=== PATIENT | male | born 1980 | race Caucasian/White ===

== ENCOUNTER 2017-05-28 18:04 | Observation (INO) | payer OTHER ==
[~2017-05-28] VITALS: Ht 180.3 cm; Wt 177.4 kg
[2017-05-28 19:08] VITALS: BP 174/111
[2017-05-28 19:40] LABS: HEMATOCRIT 43.9 % (42.0-52.0); HEMOGLOBIN 15.3 gm/dL (14.0-18.0); MCH 34.5 pg (26.0-34.0); MCHC 34.9 g/dL (28.0-37.0); MCV 98.7 fL (80.0-100.0); PLATELET COUNT 134 thou/uL (150-400); RBC 4.45 mil/uL (4.50-6.00); RDW 12.6 % (10.5-14.5); WBC 7.5 thou/uL (4.0-11.0)
[2017-05-28 19:42] LABS: MANUAL DIFF YES
[2017-05-28 19:45] LABS: CREATININE 1.1 mg/dL (0.7-1.3); POTASSIUM 4.1 mmol/L (3.5-5.1)
[2017-05-28 19:50] LABS: ALBUMIN 3.3 g/dL (3.4-5.0); DIRECT BILIRUBIN 0.2 mg/dL (<0.1-0.3); TOTAL BILIRUBIN 0.6 mg/dL (<0.1-1.0); TOTAL PROTEIN 7.7 g/dL (6.4-8.2)
[2017-05-28 19:58] LABS: ABSOLUTE NEUTROPHILS 6.2 thou/uL (1.4-8.2); ANISOCYTOSIS 1+; TOTAL CELL COUNT 100
[2017-05-28 20:38] VITALS: BP 137/92
[2017-05-28 21:00] VITALS: BP 138/90
[2017-05-28 23:50] VITALS: BP 149/78
[2017-05-29 01:22] LABS: URINE BILIRUBIN NEGATIVE (Negative); URINE BLOOD NEGATIVE (Negative); URINE COLOR YELLOW; URINE GLUCOSE-RANDOM* NEGATIVE (Negative); URINE KETONES NEGATIVE (Negative); URINE LEUKOCYTES-REFLEX NEGATIVE (Negative); URINE PROTEIN (DIPSTICK) NEGATIVE (Negative); URINE SPECIFIC GRAVITY 1.015 (1.003-1.035); URINE UROBILINOGEN 0.2 E.U./dl (0.2-1.0)
[2017-05-29 03:36] VITALS: BP 145/72
[2017-05-29 06:20] LABS: HEMATOCRIT 39.5 % (42.0-52.0); HEMOGLOBIN 14.1 gm/dL (14.0-18.0); MCH 34.9 pg (26.0-34.0); MCHC 35.8 g/dL (28.0-37.0); MCV 97.5 fL (80.0-100.0); RBC 4.05 mil/uL (4.50-6.00); RDW 12.4 % (10.5-14.5); WBC 6.1 thou/uL (4.0-11.0)
[2017-05-29 06:33] LABS: ALBUMIN 2.8 g/dL (3.4-5.0); CALCIUM 8.7 mg/dL (8.5-10.1); POTASSIUM 3.9 mmol/L (3.5-5.1); TOTAL BILIRUBIN 0.5 mg/dL (<0.1-1.0); TOTAL PROTEIN 6.8 g/dL (6.4-8.2)
[2017-05-29 08:21] VITALS: BP 152/84
[2017-05-29 15:30] VITALS: BP 174/82
[2017-05-29 18:06] LABS: HEPATITIS C VIRUS AB 0.1 (0.0-0.9)
[2017-05-29 19:35] VITALS: BP 150/75
[2017-05-30 01:41] LABS: HIV ANTIBODY Non Reactive (Non Reactive)
[2017-05-30 03:06] LABS: ESTIMATED AVERAGE GLUCOSE 103 mg/dL (()); GLYCOHEMOGLOBIN (HGB A1C) 5.2 % (4.8-5.6)
[2017-05-30 04:11] VITALS: BP 132/78
[2017-05-30 07:59] VITALS: BP 150/84
[2017-05-30 09:21] LABS: HEMATOCRIT 40.1 % (42.0-52.0); HEMOGLOBIN 14.1 gm/dL (14.0-18.0); MCH 34.6 pg (26.0-34.0); MCHC 35.3 g/dL (28.0-37.0); RBC 4.08 mil/uL (4.50-6.00); RDW 12.5 % (10.5-14.5); WBC 6.5 thou/uL (4.0-11.0)
[2017-05-30 16:00] VITALS: BP 183/61
[2017-05-30 19:35] VITALS: BP 149/78
[2017-05-31 05:00] VITALS: BP 133/81
[2017-05-31 07:23] VITALS: BP 154/79
[2017-05-31] MEDS ORDERED: CLEOCIN HCL150 MG PO (10:14)
[2017-05-31 10:34] VITALS: BP 154/79
== END 2017-05-31 12:37 | disposition home or self-care (01) ==
LOC: ER 18:04 → EROBS 20:23 → 4S 20:23
PROVIDERS: Internal Medicine; Nurse Practitioner; Nurse Practitioner Acute Care
DX: L03.115 Cellulitis of right lower limb (principal); E66.9 Obesity, unspecified; Z72.0 Tobacco use; R74.0 Nonspecific elevation of levels of transaminase and lactic acid dehydrogenase [LDH]; F12.10 Cannabis abuse, uncomplicated; M79.604 Pain in right leg; Z82.49 Family history of ischemic heart disease and other diseases of the circulatory system; Z80.8 Family history of malignant neoplasm of other organs or systems; Z83.3 Family history of diabetes mellitus
CPT/HCPCS: 10102